=== PATIENT | male | born 1945 | race Caucasian/White ===

== ENCOUNTER 2024-10-17 14:21 | Inpatient (IN) | payer OTHER ==
[2024-10-17] MEDS ORDERED: ACETAMINOPHEN INJECTION 100 ML ONE (15:13)
[2024-10-17] MEDS ORDERED: PIPERACILLIN/TAZOB 4.5 GM 4.5 GM/100 ML BAG IVPB ONE ×2 (15:56→21:40)
[2024-10-17 16:11] LABS: BG HCT 31.0 % (35.4-49); VENOUS BASE EXCESS -0.1 mmol/L (-2-2); VENOUS O2 SATURATION 51.1 % (70-80); VENOUS PCO2 38.3 mmHg (38-52); VENOUS PH 7.419 (7.310-7.410)
[2024-10-17 16:14] LABS: MCHC 31.1 g/dl (32.3-36.5); MEAN CELL VOLUME 78.8 fl (79.0-92.2); MEAN PLT VOLUME 9.6 fl (9.4-12.4); RDW 17.1 % (12.2-16.6)
[2024-10-17] MEDS: ACETAMINOPHEN 1000 MG/100 ML BAG IVPB ONE (16:15)
[2024-10-17] MEDS: PIPERACILLIN/TAZOB 4.5 GM 4.5 GM in DEXTROSE 5%-WATER 100 ML IVPB ONE (16:15)
[2024-10-17 16:22] LABS: INR 1.14 (0.83-1.09); PROTHROMBIN TIME (PATIENT) 12.5 SEC (9.7-13.0)
[2024-10-17 16:25] LABS: ACTIVATED PTT 27.5 SECONDS (25.2-36.5)
[2024-10-17 16:33] LABS: TOT PROT 6.7 g/dl (6.4-8.2)
[2024-10-17 16:36] LABS: ALK PHOS 127.0 U/L (40-150)
[2024-10-17 16:38] LABS: SGOT/AST 33.0 U/L (5-34); SGPT/ALT 20.0 U/L (0-55)
[2024-10-17 16:39] LABS: CREATININE 1.0 mg/dL (0.55-1.3)
[2024-10-17 16:47] LABS: CO2 21.0 mmol/L (21-32); GLUCOSE,RANDOM 111.0 mg/dL (74-106)
[2024-10-17 17:00] LABS: HIV INTERPRETATION NEGATIVE (NEGATIVE)
[2024-10-17 17:01] LABS: HCV DIAGNOSTIC IN-HOUSE W/RFLX NON-REACTIVE (NONREACTIVE)
[2024-10-17] MEDS ORDERED: AZITHROMYCIN IVPB 500 MG/250 ML BAG IVPB ONE (18:12)
[2024-10-17] MEDS: AZITHROMYCIN IVPB 500 MG in DEXTROSE 5%-WATER - 250 ML IVPB ONE (18:29)
[2024-10-17] MEDS ORDERED: MORPHINE SULFATE 2 MG/ML SYRINGE IVPUSH PRN (20:20)
[2024-10-17] MEDS ORDERED: ONDANSETRON 4 MG/2 ML VIAL IVPUSH PRN (20:24)
[2024-10-17] MEDS ORDERED: ALBUTEROL SO4 2.5/IPRATROPIUM 0.5 INH SOL 3 ML VIAL.NEB. NEB PRN (20:27)
[2024-10-17] MEDS: LABETALOL HCL 20 MG/4 ML VIAL IVPUSH SCH (21:35)
[2024-10-17] MEDS ORDERED: HEPARIN NA (PORCINE) 5,000 UNITS/ML 1ML VIAL ONE (21:41)
[2024-10-17] MEDS: D5-1/2NS+20 MEQ KCL - 20 MEQ/1,000 ML INFUS.BAG IV SCH (22:00)
[2024-10-17] MEDS: HEPARIN NA (PORCINE) 5,000 UNITS/ML 1ML VIAL SQ SCH (22:02)
[2024-10-17] MEDS: DOXYCYCLINE INJECTION 100 MG in DEXTROSE 5%-WATER 100 ML IVPB SCH (23:00)
[2024-10-17 23:44] LABS: LACTIC ACID 2.1 mmol/L (0.4-2.0)
[2024-10-17] MEDS: PIPERACILLIN/TAZOB 4.5 GM 4.5 GM in DEXTROSE 5%-WATER 100 ML IVPB SCH (23:48)
[2024-10-18] MEDS: GABAPENTIN 250 MG/5 ML ORAL SOLUTION, 470 ML BOTTLE NGT SCH (07:37)
[2024-10-18 08:15] LABS: INR 1.22 (0.83-1.09); PROTHROMBIN TIME (PATIENT) 13.3 SEC (9.7-13.0)
[2024-10-18 08:22] LABS: GLUCOSE,RANDOM 106 mg/dL (74-106); TOT PROT 6.0 g/dl (6.4-8.2)
[2024-10-18 08:23] LABS: CO2 22 mmol/L (21-32)
[2024-10-18 08:25] LABS: ALK PHOS 102 U/L (40-150)
[2024-10-18 08:27] LABS: SGPT/ALT 13 U/L (0-55)
[2024-10-18 08:28] LABS: CREATININE 1.28 mg/dL (0.55-1.3); SGOT/AST 24 U/L (5-34)
[2024-10-18] MEDS: SODIUM CHLORIDE 1,000 ML IV STA ×2 (08:31→10:25)
[2024-10-18] MEDS: ALBUTEROL SO4 2.5/IPRATROPIUM 0.5 INH SOL 3 ML VIAL.NEB. NEB SCH (08:40)
[2024-10-18 09:55] LABS: MCHC 30.7 g/dl (32.3-36.5); MEAN CELL VOLUME 79.8 fl (79.0-92.2); MEAN PLT VOLUME 8.9 fl (9.4-12.4); RDW 17.1 % (12.2-16.6)
[2024-10-18 10:08] LABS: GLUCOSE,RANDOM 111.0 mg/dL (74-106); TOT PROT 5.5 g/dl (6.4-8.2)
[2024-10-18 10:11] LABS: ALK PHOS 94.0 U/L (40-150)
[2024-10-18 10:13] LABS: SGPT/ALT 10.0 U/L (0-55)
[2024-10-18 10:14] LABS: CREATININE 1.26 mg/dL (0.55-1.3); SGOT/AST 22.0 U/L (5-34)
[2024-10-18 10:33] LABS: CO2 21.0 mmol/L (21-32); LACTIC ACID 2.1 mmol/L (0.4-2.0)
[2024-10-18 10:42] LABS: ARTERIAL BLD GAS O2 SATURATION 96.5 % (95-98); ARTERIAL BLOOD GAS BASE EXCESS -1.6 mmol/L (-2-2); ARTERIAL BLOOD GAS PCO2 29.40 mmHg (35-45); ARTERIAL BLOOD GAS PO2 78.3 mmHg (80-100); BG HCT 20.0 % (35.4-49); O2 CONTENT 0.92 % vol
[2024-10-18] MEDS: FOLIC ACID 1 MG TABLET (FP) NGT SCH (10:42)
[2024-10-18] MEDS: MEMANTINE HCL 10 MG TABLET (FP) GT SCH (10:42)
[2024-10-18 10:44] LABS: ALLENS TEST POSITIVE
[2024-10-18 10:47] LABS: URINE APPEARANCE TURBID; URINE BILIRUBIN NEGATIVE (NEGATIVE); URINE COLOR DK YELLOW; URINE GLUCOSE (UA) NEGATIVE (NEGATIVE); URINE KETONE NEGATIVE (NEGATIVE); URINE LEUK ESTERASE NEGATINE (NEGATIVE); URINE NITRITE NEGATIVE (NEGATIVE); URINE PROTEIN 3+ (NEGATIVE); URINE UROBILINOGEN 1.0 mg/dL (0.2-1.0)
[2024-10-18 10:48] LABS: EPI CELLS 29.1 /uL (0-25.1); HYALINE CASTS 0.5 /uL (0-3.1); URINE BACTERIA 26.7 /uL (0-1359); URINE RBC 35.1 /uL (0-23.9); URINE WBC 91.5 /uL (0-25.8)
[2024-10-18] MEDS: ACETAMINOPHEN 1000 MG/100 ML BAG IVPB PRN (11:15)
[2024-10-18] MEDS ORDERED: KCL 10 MEQ IVPB 10 MEQ/100 ML INFUS.BAG IVPB SCH (11:30)
[2024-10-18] MEDS ORDERED: POTASSIUM CHLORIDE 30 MEQ in SODIUM CHLORIDE 1,000 ML IV SCH (12:30)
[2024-10-18] MEDS: SODIUM CHLORIDE 0.9%/KCL 20 MEQ/1,000 ML INFUS.BAG IV SCH (12:36)
[2024-10-18] MEDS: VANCOMYCIN/WATER 1250 MG 1,250 MG/250 ML BAG IVPB SCH (12:36)
[2024-10-18] MEDS: methylPREDNISolone NA SUCC 40 MG/1 ML VIAL IVPUSH SCH (12:37)
[2024-10-18] MEDS: SODIUM CHLORIDE 1,905 ML IV ONE (12:38)
[2024-10-18] MEDS ORDERED: NOREPINEPHRINE BITARTRATE 4 MG/4 ML ML IV ONE (12:42)
[2024-10-18] MEDS: SODIUM CHLORIDE IV SCH (13:30)
[2024-10-18] MEDS: NOREPINEPHRINE BITARTRATE IV SCH (13:30)
[2024-10-18] MEDS ORDERED: PHENYLEPHRINE HCL 10 MG/1 ML SINGLE DOSE VIAL ONE (15:02)
[2024-10-18] MEDS: PHENYLEPHRINE NS PREMIX 50,000 MCG/500 ML BAG CVP SCH (15:15)
[2024-10-18 16:13] LABS: ARTERIAL BLD GAS O2 SATURATION 97.7 % (95-98); ARTERIAL BLOOD GAS BASE EXCESS -4.3 mmol/L (-2-2); ARTERIAL BLOOD GAS PCO2 36.10 mmHg (35-45); ARTERIAL BLOOD GAS PO2 105.3 mmHg (80-100); BG HCT 26.0 % (35.4-49); O2 CONTENT 1.24 % vol
[2024-10-18 16:18] LABS: ALLENS TEST POSITIVE
[2024-10-18] MEDS ORDERED: LIDOCAINE HCL 2% JELLY 11 ML TP ONE (16:44)
[2024-10-18] MEDS: LIDOCAINE HCL 2% JELLY 11 ML TP ONE (17:11)
[2024-10-18 17:47] LABS: IRON SERUM < 10 ug/dL (50-175)
[2024-10-18] MEDS: PIPERACILLIN/TAZOB 3.375 GM 3.375 GM in DEXTROSE 5%-WATER - 50 ML IVPB SCH (17:59)
[2024-10-18 20:44] LABS: MCHC 31.8 g/dl (32.3-36.5); MEAN CELL VOLUME 82.3 fl (79.0-92.2); MEAN PLT VOLUME 8.7 fl (9.4-12.4); RDW 16.9 % (12.2-16.6)
[2024-10-18] MEDS: AMINO ACIDS 4.25%/D5W 1,000 ML IV SCH (21:04)
[2024-10-18] MEDS: MUPIROCIN 2% TOPICAL OINTMENT FOR DECOLONIZATION NS SCH (21:05)
[2024-10-18] MEDS: CHLORHEXIDINE GLUCONATE 4% CLEANSER FOR DECOLONIZATION TP SCH (21:05)
[2024-10-18] MEDS ORDERED: MIRTAZAPINE 15 MG TABLET (FP) NGT SCH (22:00)
[2024-10-19 06:55] LABS: MCHC 32.4 g/dl (32.3-36.5); MEAN CELL VOLUME 80.7 fl (79.0-92.2); MEAN PLT VOLUME 9.0 fl (9.4-12.4); RDW 16.2 % (12.2-16.6)
[2024-10-19 07:05] LABS: LACTIC ACID 3.0 mmol/L (0.4-2.0)
[2024-10-19] MEDS ORDERED: ALBUTEROL SO4 2.5/IPRATROPIUM 0.5 INH SOL 3 ML VIAL.NEB. NEB PRN (07:05)
[2024-10-19] MEDS ORDERED: MORPHINE SULFATE 2 MG/ML SYRINGE IVPUSH PRN (07:05)
[2024-10-19] MEDS ORDERED: ONDANSETRON 4 MG/2 ML VIAL IVPUSH PRN (07:05)
[2024-10-19 07:22] LABS: GLUCOSE,RANDOM 155.0 mg/dL (74-106)
[2024-10-19 07:23] LABS: TOT PROT 5.5 g/dl (6.4-8.2)
[2024-10-19 07:24] LABS: CO2 16.0 mmol/L (21-32)
[2024-10-19 07:25] LABS: ALK PHOS 94.0 U/L (40-150)
[2024-10-19 07:28] LABS: SGOT/AST 19.0 U/L (5-34); SGPT/ALT 9.0 U/L (0-55)
[2024-10-19 07:29] LABS: CREATININE 1.01 mg/dL (0.55-1.3)
[2024-10-19] MEDS: ALBUTEROL SO4 2.5/IPRATROPIUM 0.5 INH SOL 3 ML VIAL.NEB. NEB SCH (07:55)
[2024-10-19] MEDS ORDERED: PIPERACILLIN/TAZOB 4.5 GM 4.5 GM in DEXTROSE 5%-WATER 100 ML IVPB SCH (09:00)
[2024-10-19] MEDS: PANTOPRAZOLE SODIUM 40 MG VIAL IVPUSH SCH (09:01)
[2024-10-19] MEDS: PIPERACILLIN/TAZOB 3.375 GM 3.375 GM in DEXTROSE 5%-WATER - 50 ML IVPB SCH (09:02)
[2024-10-19] MEDS: AMINO ACIDS 4.25%/D5W 1,000 ML IV SCH (10:28)
[2024-10-19] MEDS: PIPERACILLIN/TAZOB 4.5 GM 4.5 GM in DEXTROSE 5%-WATER 100 ML IVPB SCH (12:07)
[2024-10-19] MEDS: NOREPINEPHRINE 0.9 % NACL 8 MG/250 ML BAG IVPB SCH (12:09)
[2024-10-19] MEDS: SODIUM CHLORIDE 1,000 ML IV SCH (12:10)
[2024-10-20 06:52] LABS: MCHC 32.4 g/dl (32.3-36.5); MEAN CELL VOLUME 82.0 fl (79.0-92.2); MEAN PLT VOLUME 10.1 fl (9.4-12.4); RDW 17.2 % (12.2-16.6)
[2024-10-20 07:11] LABS: GLUCOSE,RANDOM 128 mg/dL (74-106); TOT PROT 5.7 g/dl (6.4-8.2)
[2024-10-20 07:12] LABS: CO2 15 mmol/L (21-32)
[2024-10-20 07:14] LABS: ALK PHOS 81 U/L (40-150)
[2024-10-20 07:17] LABS: CREATININE 0.89 mg/dL (0.55-1.3); SGOT/AST 26 U/L (5-34)
[2024-10-20 07:22] LABS: SGPT/ALT < 6 U/L (0-55)
[2024-10-20] MEDS: POTASSIUM PHOSPHATE 30 MM in SODIUM CHLORIDE 250 ML IVPB ONE (11:17)
[2024-10-20] MEDS: morphine CARPU-JECT 2 MG/1 ML DISP.SYRIN IVPUSH PRN (21:17)
[2024-10-21 07:08] LABS: MCHC 32.3 g/dl (32.3-36.5); MEAN CELL VOLUME 80.6 fl (79.0-92.2); MEAN PLT VOLUME 9.0 fl (9.4-12.4); RDW 17.7 % (12.2-16.6)
[2024-10-21 08:03] LABS: GLUCOSE,RANDOM 104.0 mg/dL (74-106)
[2024-10-21 08:04] LABS: TOT PROT 5.5 g/dl (6.4-8.2)
[2024-10-21 08:05] LABS: CO2 16.0 mmol/L (21-32)
[2024-10-21 08:06] LABS: ALK PHOS 72.0 U/L (40-150)
[2024-10-21 08:09] LABS: CREATININE 0.89 mg/dL (0.55-1.3); SGOT/AST 20.0 U/L (5-34); SGPT/ALT 6.0 U/L (0-55)
[2024-10-21 10:06] LABS: MONOCYTE # 0.51 x10^3/uL (0.30-0.82)
[2024-10-21] MEDS: AMINO ACIDS 4.25%/D5W 1,000 ML IV SCH (15:33)
[2024-10-21] MEDS ORDERED: ONDANSETRON 4 MG/2 ML VIAL IVPUSH PRN (23:32)
[2024-10-22] MEDS: VANCOMYCIN/WATER 1250 MG 1,250 MG/250 ML BAG IVPB SCH ×2 (00:05→14:13)
[2024-10-22] MEDS: PIPERACILLIN/TAZOB 3.375 GM 3.375 GM in DEXTROSE 5%-WATER - 50 ML IVPB SCH (01:31)
[2024-10-22] MEDS: ALBUTEROL SO4 2.5/IPRATROPIUM 0.5 INH SOL 3 ML VIAL.NEB. NEB SCH (07:30)
[2024-10-22 08:06] LABS: ABSOLUTE IMMATURE GRANULOCYTES 0.34 x10^3/uL (0.0-0.031); BASOPHILS # 0.03 x10^3/uL (0.01-0.08); EOSINOPHIL % 0.0 % (0.8-7.0); EOSINOPHILS # 0.00 x10^3/uL (0.04-0.54); MCHC 31.6 g/dl (32.3-36.5); MEAN CELL VOLUME 81.3 fl (79.0-92.2); MEAN PLT VOLUME 9.2 fl (9.4-12.4); MONOCYTE # 1.11 x10^3/uL (0.30-0.82); MONOCYTE % 7.6 % (5.3-12.2); RDW 18.2 % (12.2-16.6)
[2024-10-22 08:25] LABS: GLUCOSE,RANDOM 86.0 mg/dL (74-106); TOT PROT 5.4 g/dl (6.4-8.2)
[2024-10-22 08:27] LABS: CO2 19.0 mmol/L (21-32)
[2024-10-22 08:28] LABS: ALK PHOS 68.0 U/L (40-150)
[2024-10-22 08:31] LABS: CREATININE 0.82 mg/dL (0.55-1.3); SGOT/AST 18.0 U/L (5-34); SGPT/ALT 8.0 U/L (0-55)
[2024-10-22] MEDS: KCL 10 MEQ IVPB 10 MEQ/100 ML INFUS.BAG IVPB SCH (08:43)
[2024-10-22] MEDS: methylPREDNISolone NA SUCC 40 MG/1 ML VIAL IVPUSH SCH (09:23)
[2024-10-22] MEDS: PANTOPRAZOLE SODIUM 40 MG VIAL IVPUSH SCH (09:26)
[2024-10-22] MEDS ORDERED: MUPIROCIN 2% TOPICAL OINTMENT FOR DECOLONIZATION NS SCH (10:00)
[2024-10-22 14:45] VITALS: BMI 30.8
[2024-10-22] MEDS: FAT EMULSION/OLIVE/SOY/PHOSPHO 250 ML IV SCH (21:53)
[2024-10-22] MEDS ORDERED: FAT EMULSION/OLIVE/SOY (CLINOLIPID) 250 ML EMULSION IV SCH (22:00)
[2024-10-22] MEDS ORDERED: CHLORHEXIDINE GLUCONATE 4% CLEANSER FOR DECOLONIZATION TP SCH (22:00)
[2024-10-23 08:13] LABS: ABSOLUTE IMMATURE GRANULOCYTES 0.67 x10^3/uL (0.0-0.031); BASOPHILS # 0.06 x10^3/uL (0.01-0.08); EOSINOPHIL % 0.0 % (0.8-7.0); EOSINOPHILS # 0.00 x10^3/uL (0.04-0.54); MCHC 32.5 g/dl (32.3-36.5); MEAN CELL VOLUME 81.2 fl (79.0-92.2); MEAN PLT VOLUME 9.4 fl (9.4-12.4); MONOCYTE # 1.08 x10^3/uL (0.30-0.82); MONOCYTE % 6.5 % (5.3-12.2); RDW 18.7 % (12.2-16.6)
[2024-10-23 09:08] LABS: GLUCOSE,RANDOM 86.0 mg/dL (74-106)
[2024-10-23 09:09] LABS: CO2 18.0 mmol/L (21-32); TOT PROT 5.4 g/dl (6.4-8.2)
[2024-10-23 09:11] LABS: ALK PHOS 67.0 U/L (40-150)
[2024-10-23 09:14] LABS: CREATININE 0.79 mg/dL (0.55-1.3); SGOT/AST 22.0 U/L (5-34); SGPT/ALT 8.0 U/L (0-55)
[2024-10-23] MEDS: KCL 10 MEQ IVPB 10 MEQ/100 ML INFUS.BAG IVPB SCH (11:15)
[2024-10-23] MEDS: POTASSIUM PHOSPHATE 15 MM in SODIUM CHLORIDE 250 ML IVPB ONE (11:16)
[2024-10-23] MEDS: LIDOCAINE 5% TOPICAL PATCH TP SCH (12:51)
[2024-10-23] MEDS: ACETAMINOPHEN 1000 MG/100 ML BAG IVPB ONE (13:44)
[2024-10-23] MEDS: LIDOCAINE PATCH REMOVAL MC SCH (21:23)
[2024-10-23] MEDS: MAGNESIUM SULF 50% (8.12 MEQ/2 ML-1 GM VIAL) IVPB ONE (21:33)
[2024-10-24] MEDS: ALBUTEROL SO4 2.5/IPRATROPIUM 0.5 INH SOL 3 ML VIAL.NEB. NEB PRN (06:45)
[2024-10-24 07:35] LABS: ABSOLUTE IMMATURE GRANULOCYTES 0.62 x10^3/uL (0.0-0.031); BASOPHILS # 0.04 x10^3/uL (0.01-0.08); EOSINOPHIL % 0.0 % (0.8-7.0); EOSINOPHILS # 0.00 x10^3/uL (0.04-0.54); MCHC 32.3 g/dl (32.3-36.5); MEAN CELL VOLUME 81.3 fl (79.0-92.2); MEAN PLT VOLUME 9.2 fl (9.4-12.4); MONOCYTE # 0.97 x10^3/uL (0.30-0.82); MONOCYTE % 7.3 % (5.3-12.2); RDW 19.5 % (12.2-16.6)
[2024-10-24 07:41] LABS: GLUCOSE,RANDOM 84.0 mg/dL (74-106); TOT PROT 5.6 g/dl (6.4-8.2)
[2024-10-24 07:42] LABS: CO2 20.0 mmol/L (21-32)
[2024-10-24 07:44] LABS: ALK PHOS 63.0 U/L (40-150)
[2024-10-24 07:46] LABS: SGOT/AST 22.0 U/L (5-34); SGPT/ALT 12.0 U/L (0-55)
[2024-10-24 07:47] LABS: CREATININE 0.86 mg/dL (0.55-1.3)
[2024-10-24] MEDS ORDERED: MAGNESIUM SULFATE IN WATER 2 GM/50 ML IVPB IVPB ONE ×2 (08:52→11:30)
[2024-10-24] MEDS: POTASSIUM PHOSPHATE 15 MM in SODIUM CHLORIDE 250 ML IVPB ONE (13:07)
[2024-10-24 15:45] VITALS: RESP 18
[2024-10-24] MEDS: NAPH,MB-DB/K PH,MBDB POWDER PACKET PO SCH (16:55)
[2024-10-24] MEDS: AMOX TR/POT CLAV 875MG/125MG TABLETS (FP) PO SCH (16:56)
[2024-10-24] MEDS: MIRTAZAPINE 15 MG TABLET (FP) PO SCH (21:26)
[2024-10-25 07:48] VITALS: BP 124/66; PULSE 94; TEMP 97.5
[2024-10-25 08:33] LABS: ABSOLUTE IMMATURE GRANULOCYTES 0.68 x10^3/uL (0.0-0.031); BASOPHILS # 0.06 x10^3/uL (0.01-0.08); EOSINOPHIL % 0.1 % (0.8-7.0); EOSINOPHILS # 0.01 x10^3/uL (0.04-0.54); MCHC 32.2 g/dl (32.3-36.5); MEAN CELL VOLUME 81.3 fl (79.0-92.2); MEAN PLT VOLUME 9.2 fl (9.4-12.4); MONOCYTE # 1.09 x10^3/uL (0.30-0.82); MONOCYTE % 7.4 % (5.3-12.2); RDW 19.8 % (12.2-16.6)
[2024-10-25 09:03] LABS: GLUCOSE,RANDOM 69.0 mg/dL (74-106)
[2024-10-25 09:04] LABS: TOT PROT 5.7 g/dl (6.4-8.2)
[2024-10-25 09:05] LABS: CO2 21.0 mmol/L (21-32)
[2024-10-25 09:06] LABS: ALK PHOS 68.0 U/L (40-150)
[2024-10-25 09:09] LABS: CREATININE 0.89 mg/dL (0.55-1.3); SGOT/AST 22.0 U/L (5-34); SGPT/ALT 12.0 U/L (0-55)
[2024-10-25] MEDS: NAPH,MB-DB/K PH,MBDB POWDER PACKET PO SCH (10:13)
[2024-10-25] MEDS: MEMANTINE HCL 10 MG TABLET (FP) PO SCH (10:13)
[2024-10-25] MEDS: POTASSIUM CHLORIDE ORAL LIQUID 20 MEQ/15 ML PO SCH (10:13)
[2024-10-25] MEDS: TAMSULOSIN HCL 0.4 MG CAP PO SCH (10:13)
== END 2024-10-25 16:34 | DRG 871 ==
LOC: JER 14:21 → JERBED 17:40 → J8W 22:53 → JICU 10-18 12:00 → J8W 10-21 23:30
PROVIDERS: ADMIT Hospitalist; ATTEND Nurse Practitioner Acute Care
PROC: 02HV33Z Insertion of Infusion Device into Superior Vena Cava, Percutaneous Approach (ICD-10-PCS; principal; 2024-10-18)
PROC: B548ZZA Ultrasonography of Superior Vena Cava, Guidance (ICD-10-PCS; 2024-10-18)
PROC: 30233N1 Transfusion of Nonautologous Red Blood Cells into Peripheral Vein, Percutaneous Approach (ICD-10-PCS; 2024-10-18)
DX: A41.9 Sepsis, unspecified organism (principal); J69.0 Pneumonitis due to inhalation of food and vomit; J96.01 Acute respiratory failure with hypoxia; R65.21 Severe sepsis with septic shock; E87.20 Acidosis, unspecified; E87.1 Hypo-osmolality and hyponatremia; K56.609 Unspecified intestinal obstruction, unspecified as to partial versus complete obstruction; E46 Unspecified protein-calorie malnutrition; Z68.1 Body mass index [BMI] 19.9 or less, adult; I10 Essential (primary) hypertension; N40.0 Benign prostatic hyperplasia without lower urinary tract symptoms; E87.6 Hypokalemia; G20.A1 Parkinson's disease without dyskinesia, without mention of fluctuations; F03.90 Unspecified dementia, unspecified severity, without behavioral disturbance, psychotic disturbance, mood disturbance, and anxiety; D64.9 Anemia, unspecified; K63.89 Other specified diseases of intestine; I45.10 Unspecified right bundle-branch block
CPT/HCPCS: 36415; 36430; 36600; 71045-TC-FY; 71260-TC; 74177-TC; 80053; 81003; 82272; 82378; 82728; 82803; 82962; 83540; 83550; 83605; 83735; 84100; 84478; 84484; 85025; 85027; 85610; 85730; 86803; 86850; 86900; 86901; 86922; 87040; 87077; 87081; 87086; 87389; 87481; 87637-QW; 87899; 93005; 93010; 94640; 97116-GP; 97161-GP; 99291; G0480; J3490; P9058; Q9967